=== PATIENT | male | born 1985 | race Caucasian/White ===

== ENCOUNTER 2019-08-09 03:22 | Emergency (ER) | payer OTHER, SELFPAY ==
[2019-08-09 03:22] VITALS: BP 142/92; PULSE 67; RESP 18; TEMP 36.5; O2SAT 99; BMI 33.0
--- NOTE | 2019-08-09 03:23 | XRR_ITS ---
PROCEDURE INFORMATION: Exam: XR Chest, 1 View Exam date and time: 08/09/2019 4:00 AM Age: 34 years old Clinical indication: Chest pain TECHNIQUE: Imaging protocol: XR of the chest Views: Frontal portable upright view of the chest. COMPARISON: No relevant prior studies available. FINDINGS: Lungs: The lungs are clear bilaterally. The pulmonary vasculature is normal. Pleural space: No pleural effusion. No pneumothorax. Heart/Mediastinum: The heart is normal in size and contour. Bones/joints: No acute chest wall abnormality identified. XR/XR chest 1V portable [id number] IMPRESSION: No acute cardiopulmonary abnormality identified.
--- NOTE | 2019-08-09 03:27 | ED_ITS ---
Entered by Ligia Amaya, acting as scribe for Rebel Lerma MD HPI - Chest Pain General: Chief Complaint: Chest Pain Stated Complaint: chest pain Time Seen by Provider: 08/09/19 03:23 Source: patient Mode of arrival: ambulatory Limitations: no limitations History of Present Illness: HPI narrative: 34 yo m came to the po for chest pain. Pt states that he woke up from a sleep with a sharp dull pain in the center of his chest. Pt does not have any nausea or vomiting at this time. Pt said that he is pain free at this time. 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) Timing of current episode: episodic Prior episodes: No Onset: during rest Pain location: substernal Pain radiation: none Severity: moderate Quality: sharp and dull Relieving factors: other (gi cocktail) Exacerbating factors: nothing Context: recent illness Associated symptoms: Reports no associated symptoms and abdominal pain; Deny dyspnea or fever(s) Treatment prior to arrival: other (gi cocktail) Risk Factors: Coronary artery disease risk factors: none Review of Systems General: Reports: other (negative unless marked) Const: Denies: fever, chills, body aches or change in appetite Eyes: Denies: blurry vision or eye discomfort ENMT: Denies: throat pain or dental pain Card: Reports: chest pain Resp: Denies: shortness of breath GI: Reports: abdominal pain : Denies: painful urination Musc: Denies: neck pain or back pain Skin/Breast: Denies: rash Neuro: Denies: headache Psych: Denies: depression Alber/Lymph: Denies: easy bruising All/Imm: Denies: hives PFSH ED PFSH: Social History Smoking and tobacco status: never smoked Physical Exam Const: COMMON NORMALS: no apparent distress, oriented x3 and healthy appearing HENMT: COMMON NORMALS: normocephalic and head/scalp atraumatic HEAD & SCALP: normocephalic and atraumatic Eye: COMMON NORMALS: PERRL and EOMs intact bilaterally PUPIL: Yes PERRL Neck/C-Spine: COMMON NORMALS: full ROM and supple Chest: COMMONS NORMALS: inspection of chest normal and palpation of chest normal Resp: COMMON NORMALS: normal respiratory effort, no retractions, no use of accessory muscles and clear to auscultation bilaterally AUSCULTATION: clear to auscultation bilaterally Cardio: COMMON NORMALS: regular rate, regular rhythm and no murmurs RATE: regular rate RHYTHM: regular rhythm GI: COMMON NORMALS: normal to inspection, nondistended, normoactive bowel sounds, soft to palpation, non-tender and no masses PALPATION: Yes soft Extremity: COMMON NORMALS: normal to inspection and full ROM Neuro: COMMON NORMALS: oriented x3, moves all extremities and no focal motor deficits Psych: COMMON NORMALS: mental status grossly normal, thought process normal and cooperative THOUGHT PROCESS: normal thought process Skin: COMMON NORMALS: no rashes or lesions noted and no wounds GENERAL SKIN EXAM: no rashes or lesions noted Course Vital Signs: Vital signs: Vital Signs Temperature 97.7 F 08/09/19 03:22 Pulse Rate 67 08/09/19 03:22 Respiratory Rate 18 08/09/19 03:22 Blood Pressure 142/92 08/09/19 03:22 Pulse Oximetry 99 08/09/19 03:22 MDM - Chest Pain MDM Narrative: Medical decision making narrative: Patient presents here with epigastric abdominal pain that is likely gastritis. Patient's lab work here is negative including white count and lipase. Patient has no signs of cardiac cause or pulmonary embolism. Patient CT scan here is negative as well. He has been pain-free here and we will place him on Prilosec. He is to follow-up with primary care doctor in 2 to 4 days and return if worsening. Lab Data: Labs: Lab Results 08/09/19 08/09/19 08/09/19 Range/Units 03:30 03:30 03:30 WBC 7.3 (4.0-10.0) 10^3/ uL RBC 4.97 (4.1-5.3) 10^6/u L Hgb 15.3 (11.7-16.6) g/dL Hct 45.7 (42.0-52.0) % MCV 92.0 (80-94) fL MCH 30.8 (28.0-34.0) pg MCHC 33.5 (30.0-36.0) g/dL RDW 12.6 (12.1-15.1) % Plt Count 296 (130-400) 10^3/c mm MPV 10.1 (7.4-10.4) fL Neut % (Auto) 40.6 % Lymph % (Auto) 46.7 % Towner % (Auto) 10.6 % Eos % (Auto) 1.2 % Baso % (Auto) 0.5 % Neut # (Auto) 3.0 (1.8-7.7) 10^3/u L Lymph # (Auto) 3.4 (0.8-4.8) 10^3/u L Towner # (Auto) 0.8 (0.2-0.9) 10^3/u L Eos # (Auto) 0.1 (0.0-0.8) 10^3/u L Baso # (Auto) 0.0 (0.0-0.1) 10^3/u L Nucleated RBC % (a uto) 0 % Nucleated RBCs # 0.0 /100WBC Sodium 141 (136-145) mmol/L Potassium 3.5 (3.5-5.1) mmol/L Chloride 102 (98-107) mmol/L Carbon Dioxide 29 (22-29) mmol/L Anion Gap 13.5 (5-19) BUN 13 (6-20) mg/dL Creatinine 1.0 (0.7-1.2) mg/dL GFR Calculation 86.6 L (90-130) mL/min Glucose 108 (65-115) mg/dL Calculated Osmolal ity 289 (285-295) mOsm/k g Calcium 9.8 (8.5-10.5) mg/dL Total Bilirubin 0.5 (0.15-1.2) mg/dL AST 55 H (0-40) U/L ALT 119 H (0-41) U/L Alkaline Phosphata se 100 (40-130) IU/L Troponin T Baselin e 7 (0-15) ng/mL Troponin T 120 Min renae (0-15) ng/mL Total Protein 7.5 (6.6-8.7) g/dL Albumin 4.6 (3.5-5.2) g/dL Globulin 2.9 (1.3-4.6) g/dL Lipase 29 (13-60) U/L 08/09/19 Range/Units 05:26 WBC (4.0-10.0) 10^3/ uL RBC (4.1-5.3) 10^6/u L Hgb (11.7-16.6) g/dL Hct (42.0-52.0) % MCV (80-94) fL MCH (28.0-34.0) pg MCHC (30.0-36.0) g/dL RDW (12.1-15.1) % Plt Count (130-400) 10^3/c mm MPV (7.4-10.4) fL Neut % (Auto) % Lymph % (Auto) % Towner % (Auto) % Eos % (Auto) % Baso % (Auto) % Neut # (Auto) (1.8-7.7) 10^3/u L Lymph # (Auto) (0.8-4.8) 10^3/u L Towner # (Auto) (0.2-0.9) 10^3/u L Eos # (Auto) (0.0-0.8) 10^3/u L Baso # (Auto) (0.0-0.1) 10^3/u L Nucleated RBC % (a uto) % Nucleated RBCs # /100WBC Sodium (136-145) mmol/L Potassium (3.5-5.1) mmol/L Chloride (98-107) mmol/L Carbon Dioxide (22-29) mmol/L Anion Gap (5-19) BUN (6-20) mg/dL Creatinine (0.7-1.2) mg/dL GFR Calculation (90-130) mL/min Glucose (65-115) mg/dL Calculated Osmolal ity (285-295) mOsm/k g Calcium (8.5-10.5) mg/dL Total Bilirubin (0.15-1.2) mg/dL AST (0-40) U/L ALT (0-41) U/L Alkaline Phosphata se (40-130) IU/L Troponin T Baselin e (0-15) ng/mL Troponin T 120 Min renae 6.07 (0-15) ng/mL Total Protein (6.6-8.7) g/dL Albumin (3.5-5.2) g/dL Globulin (1.3-4.6) g/dL Lipase (13-60) U/L Imaging Data^: CT Abd/Pel: Attestation: I personally reviewed and interpreted this imaging study as follows: Radiologist's impression: [address] [address] [address] Scan Report Signed Patient: Luis Fernando Burleson Unit #: [id number] : 1985 Age/Sex: 34 / M ADM Date: 08/09/19 Loc: ER Room/Bed: Attending Dr: Ordering Provider/Ordering MD: Rebel Lerma MD Date of Service: 08/09/19 Procedure(s): CT abdomen pelvis w con* [id number] Accession Number(s): [id number] Report Number: [id number] PROCEDURE INFORMATION: Exam: CT Abdomen And Pelvis With Contrast Exam date and time: 08/09/2019 4:00 AM Age: 34 years old Clinical indication: Abdominal pain; Generalized; Additional info: Abd pain TECHNIQUE: Imaging protocol: Computed tomography of the abdomen and pelvis with intravenous contrast. Total DLP: 1686.93 mGy-cm Radiation optimization: All CT scans at this facility use at least one of these dose optimization techniques: automated exposure control; mA and/or kV adjustment per patient size (includes targeted exams where dose is matched to clinical indication); or iterative reconstruction. Contrast material: OMNI 300; Contrast volume: 95 ml; Contrast route: 20G; COMPARISON: No relevant prior studies available. FINDINGS: Visualized portions of the lung bases are clear. The liver, gallbladder, spleen, pancreas, adrenal glands, and kidneys are unremarkable. A normal-appearing appendix is seen in the right lower quadrant. No evidence of bowel obstruction. No evidence of diverticulitis. No free intraperitoneal air or fluid identified. The bladder is unremarkable. The abdominal aorta is unremarkable. Bilateral L5 pars interarticularis defects noted. CT/CT abdomen pelvis w con* [id number] IMPRESSION: 1. No acute intra-abdominal/intrapelvic process identified. EKG Data^: EKG 1: Attestation: I personally reviewed and interpreted this EKG as follows: EKG interpretation date: 08/09/19 EKG interpretation time: 04:06 Interpretation: nsr hr [address] or t wave abnormalities qrs 110 qtc 409 Discharge Plan Discharge Patient Disposition: Home, Self-Care Clinical Impression: Abdominal pain Qualifiers: Abdominal location: epigastric Qualified Code(s): R10.13 - Epigastric pain Condition: Stable Prescriptions: New Prilosec OTC 20 mg tablet,delayed release (DR/EC) 20 mg PO DAILY 70 Days RF: 0 Discharge Orders: Discharge Order (Routine); Ordered 08/09/19 Ordered By: Rebel Lerma Discharge Diet: Advance as tolerated Discharge Activity: Resume usual activity Patient Instructions: Abdominal Pain (ED) Discharge Date/Time: 08/09/19 05:56 Coding Level of Care Code ED Associate Accountant for Chg Fwd Exam Comprehensive The documentation recorded by the Jose Luis ortiz Stephanie Lyn, accurately reflects the service I personally performed and the decisions made by Florentin arriaga Korby, MD Aug 09, 2019 03:22
[2019-08-09] MEDS: ondansetron 2 mg/ML SDV 2 mL 4 MG IVP (03:40)
[2019-08-09] MEDS: sodium chloride 0.9% 1,000 ML 999 ML IV (03:40)
[2019-08-09 03:44] LABS: Basophils % 0.5 %; Eosinophils # 0.1 10^3/uL (0.0-0.8); Eosinophils % 1.2 %; Hematocrit 45.7 % (42.0-52.0); Hemoglobin 15.3 g/dL (11.7-16.6); Lymphocytes # 3.4 10^3/uL (0.8-4.8); Lymphocytes % 46.7 %; Mean Corpuscular HGB Conc 33.5 g/dL (30.0-36.0); Mean Corpuscular Hemoglobin 30.8 pg (28.0-34.0); Mean Platelet Volume 10.1 fL (7.4-10.4); Monocytes # 0.8 10^3/uL (0.2-0.9); Monocytes % 10.6 %; Neutrophils % 40.6 %; Nucleated Red Blood Cells % 0 %; Platelet Count 296 10^3/cmm (130-400); Red Blood Count 4.97 10^6/uL (4.1-5.3); Red Cell Distribution Width 12.6 % (12.1-15.1); White Blood Count 7.3 10^3/uL (4.0-10.0)
--- NOTE | 2019-08-09 03:57 | CTR_ITS ---
PROCEDURE INFORMATION: Exam: CT Abdomen And Pelvis With Contrast Exam date and time: 08/09/2019 4:00 AM Age: 34 years old Clinical indication: Abdominal pain; Generalized; Additional info: Abd pain TECHNIQUE: Imaging protocol: Computed tomography of the abdomen and pelvis with intravenous contrast. Total DLP: 1686.93 mGy-cm Radiation optimization: All CT scans at this facility use at least one of these dose optimization techniques: automated exposure control; mA and/or kV adjustment per patient size (includes targeted exams where dose is matched to clinical indication); or iterative reconstruction. Contrast material: OMNI 300; Contrast volume: 95 ml; Contrast route: 20G; COMPARISON: No relevant prior studies available. FINDINGS: Visualized portions of the lung bases are clear. The liver, gallbladder, spleen, pancreas, adrenal glands, and kidneys are unremarkable. A normal-appearing appendix is seen in the right lower quadrant. No evidence of bowel obstruction. No evidence of diverticulitis. No free intraperitoneal air or fluid identified. The bladder is unremarkable. The abdominal aorta is unremarkable. Bilateral L5 pars interarticularis defects noted. CT/CT abdomen pelvis w con* [id number] IMPRESSION: 1. No acute intra-abdominal/intrapelvic process identified. Radiation Dose CTDIVOL = (mGy): DLP = 1686.93 (mGy-cm)
[2019-08-09 03:58] LABS: Alanine Aminotransferase 119 U/L (0-41); Albumin Level 4.6 g/dL (3.5-5.2); Alkaline Phosphatase 100 IU/L (40-130); Anion Gap 13.5 (5-19); Aspartate Amino Transferase 55 U/L (0-40); Blood Urea Nitrogen 13 mg/dL (6-20); Calcium 9.8 mg/dL (8.5-10.5); Carbon Dioxide 29 mmol/L (22-29); Chloride 102 mmol/L (98-107); Globulin 2.9 g/dL (1.3-4.6); Glomerular Filtration Rate 86.6 mL/min (90-130); Glucose 108 mg/dL (65-115); Lipase 29 U/L (13-60); Osmolality Calculated 289 mOsm/kg (285-295); Potassium 3.5 mmol/L (3.5-5.1); Sodium 141 mmol/L (136-145); Total Bilirubin 0.5 mg/dL (0.15-1.2); Total Protein 7.5 g/dL (6.6-8.7)
[2019-08-09 03:59] LABS: Troponin(5th) Baseline 7 ng/mL (0-15)
[2019-08-09] MEDS: iohexol 300 mg/mL 100 mL Btl IV (04:50)
--- NOTE | 2019-08-09 05:24 | ECG_ITS ---
Measurements Intervals Theresa Rate: 67 P: 36 AL: 178 QRS: -9 QRSD: 112 T: 0 QT: 384 QTc: 407 SINUS RHYTHM MODERATE INTRAVENTRICULAR CONDUCTION DELAY [110+ ms QRS DURATION] NONSPECIFIC ST & T-WAVE ABNORMALITY No previous ECG available for comparison Electronically Signed On 08-09-2019 9:07:52 CDT by Branden Ramirez M.D. [email or web address]
[2019-08-09 05:46] LABS: Troponin 5 2HR 6.07 ng/mL (0-15)
[2019-08-09 05:54] VITALS: BP 138/87; PULSE 72; RESP 16; O2SAT 98
[2019-08-09 06:06] LABS: Troponin 5 2HR Delta -0.93 ABS# (0-10)
--- NOTE | 2019-08-09 09:24 | ECG_ITS ---
Measurements Intervals [place] Rate: 71 P: 41 FL: 181 QRS: -9 QRSD: 110 T: 27 QT: 386 QTc: [address] & T-WAVE ABNORMALITY No previous ECG available for comparison Electronically Signed On 08-09-2019 9:07:48 CDT by Branden Ramirez M.D. [email or web address]
== END 2019-08-09 05:56 | disposition home or self-care (01) ==
PROVIDERS: Emergency Provider Emergency Medicine
DX: R10.13 Epigastric pain (principal)
CPT/HCPCS: 12345; 71045; 74177; 80053; 83690; 84484; 85025; 93005; 96361; 96374; 96375; 99283; 99284; J2405; J7030; Q9967

== ENCOUNTER 2020-03-04 10:45 | Outpatient (CLI) | payer OTHER, SELFPAY ==
[2020-03-05 14:51] LABS: Coronavirus Lab Test PTC Positive
== END 2020-03-04 10:46 | disposition home or self-care (01) ==
LOC: LAB 10:46
PROVIDERS: Visit Provider Family Medicine
DX: Z20.828 Contact with and (suspected) exposure to other viral communicable diseases (principal)
CPT/HCPCS: 87635